=== PATIENT | female | born 1990 | race Two or more races ===

== ENCOUNTER 2018-10-20 12:30 | Emergency (ER) | payer OTHER ==
[2018-10-20 13:25] LABS: BILIRUBIN,URINE NEGATIVE (NEGATIVE); CLARITY,URINE HAZY (CLEAR); GLUCOSE, URINE (UA) NEGATIVE (NEGATIVE); KETONES,URINE (UA) NEGATIVE (NEGATIVE); LEUKOCYTE ESTERASE, URINE TRACE (NEGATIVE); NITRITE,URINE NEGATIVE (NEGATIVE); OCCULT BLOOD,URINE NEGATIVE (NEGATIVE); PH,URINE 6.5 PH (5.0-7.5); PROTEIN,URINE NEGATIVE (NEGATIVE); UROBILINOGEN,URINE 0.2 (NORMAL) E.U./dL (NORMAL)
[2018-10-20 13:26] LABS: HCG UR QUAL NEGATIVE
[2018-10-20 13:36] LABS: BACTERIA,URINE Many /HPF (None Seen); RBC,URINE 0-5 /HPF (0-5); SQUAMOUS EPITHELIAL CELL,UR MANY Squamous (<= Few)
[2018-10-20 13:37] LABS: MUCUS,URINE Few Strands; YEAST,URINE PRESENT
[2018-10-20] MEDS ORDERED: FLUCONAZOLE 100 MG TABLET PO STA (13:47)
--- NOTE | 2018-10-20 13:50 | ED Physician Documentation ---
History of Present Illness - Stated complaint Stated Complaint: LOWER ABD PX/FEMALE - Chief complaint Chief Complaint: Abd Pain - History obtained from History obtained from: Patient - History of Present Illness Timing: How many days ago (several) Pain level max: 3 Pain level now: 3 - Additonal information Additional information: 28-year-old female presents to the emergency department stating that she has dysuria, urinary frequency and burning with urination along with vaginal discharge. Feels similar to past UTI and yeast infections that she has had. No changes in sexual partners. No STD exposure. Worse with urination, nothing makes it better. No fevers. No vomiting. No back pain. Review of Systems Constitutional: denies: Fever, Chills Ears: denies: Ear pain Nose: denies: Rhinorrhea / runny nose, Congestion Cardiac: denies: Chest pain / pressure Respiratory: denies: Cough GI: denies: Nausea, Vomiting, Diarrhea : denies: Now EGA Skin: denies: Rash PD PAST MEDICAL HISTORY - Past Medical History Cardiovascular: None Respiratory: None Endocrine/Autoimmune: None Psych: Anxiety - Past Surgical History Past Surgical History: No - Present Medications Home Medications: Ambulatory Orders Medication Instructions Recorded Confirmed Mv-Mn/Iron/FA/Herbal/Digestive 03/07/14 03/07/14 [ One Tablet] Venlafaxine ER [Effexor ER] 03/07/14 03/07/14 Albuterol Sulfate [Proair Hfa 8.5 gm IH QID #1 hfa.aer.ad 06/22/16 Inhaler] Amoxicillin 500 mg PO TID #20 capsule 06/22/16 Dexamethasone [Decadron] 4 mg PO DAILY #5 tablet 06/22/16 Ondansetron HCl [Zofran] 4 mg PO Q6H PRN #20 tablet 06/22/16 guaiFENesin/CODEINE [Robitussin AC] 10 ml PO Q6H PRN #240 ml 06/22/16 Nitrofurantoin Monohyd/M-Cryst 100 mg PO BID #10 capsule 10/20/18 [Macrobid 100 mg Capsule] - Allergies Allergies/Adverse Reactions: Allergies Allergy/AdvReac Type Severity Reaction Status Date / Time No Known Drug Allergies Allergy Verified 10/20/18 12:40 - Social History Does the pt smoke?: No Smoking Status: Never smoker Does the pt drink ETOH?: No Does the pt have substance abuse?: No - POLST Patient has POLST: No PD ED PE NORMAL - Vitals Vital signs reviewed: Yes - General General: Alert and oriented X 3, No acute distress, Well developed/nourished - HEENT HEENT: PERRL - Neck Neck: Supple, no meningeal sign - Cardiac Cardiac: RRR, Strong equal pulses - Respiratory Respiratory: No respiratory distress, Clear bilaterally - Abdomen Abdomen: Soft, Non tender, Non distended - Female Female : Pt declined - Back Back: No CVA TTP, No spinal TTP - Derm Derm: Warm and dry - Neuro Neuro: Alert and oriented X 3 - Psych Psych: Normal mood, Normal affect Results - Vitals Vitals: Vital Signs - 24 hr 10/20/18 12:37 Temperature 36.6 C Heart Rate 67 Respiratory 16 Rate Blood Pressure 105/70 O2 Saturation 98 Oxygen O2 Source Room air - Labs Labs: Laboratory Tests 10/20/18 13:10 Urine Color YELLOW Urine Clarity HAZY Urine pH 6.5 Ur Specific Clark 1.020 Urine Protein NEGATIVE Urine Glucose (UA) NEGATIVE Urine Ketones NEGATIVE Urine Occult Blood NEGATIVE Urine Nitrite NEGATIVE Urine Bilirubin NEGATIVE Urine Urobilinogen 0.2 (NORMAL) Ur Leukocyte Esterase TRACE H Urine RBC 0-5 Urine WBC 6-10 H Ur Squamous Epith Cells MANY Squamous H Urine Bacteria Many H Urine Mucus Few Strands Urine Yeast PRESENT Ur Microscopic Review INDICATED Urine Culture Comments NOT INDICATED Urine HCG, Qual NEGATIVE PD MEDICAL DECISION MAKING - ED course Complexity details: reviewed results, re-evaluated patient, considered differential, d/w patient ED course: Patient with a UTI and yeast infection. Given Diflucan here. Will place on Macrobid for home. I will follow-up with her doctor for further care. Patient counseled regarding signs and symptoms for which I believe and urgent re- evaluation would be necessary. Patient with good understanding of and agreement to plan and is comfortable going home at this time This document was made in part using voice recognition software. While efforts are made to proofread this document, sound alike and grammatical errors may occur. Departure - Departure Disposition: Home, Self Care Clinical Impression: Vaginal yeast infection UTI (urinary tract infection) Qualifiers: Urinary tract infection type: acute cystitis Hematuria presence: without hematuria Qualified Code(s): N30.00 - Acute cystitis without hematuria Condition: Good Instructions: ED UTI Cystitis Female, ED Vaginal Infec Fungal Martina Follow-Up: your,doctor in 1week if not better [Other] Prescriptions: Nitrofurantoin Monohyd/M-Cryst [Macrobid 100 mg Capsule] 100 mg PO BID #10 capsule Comments: Return if you worsen. Take all antibiotics until gone.
[2018-10-20 14:01] VITALS: BP 114/72
== END 2018-10-20 14:01 | disposition home or self-care (01) ==
LOC: ED 12:30
DX: N30.00 Acute cystitis without hematuria (principal)
CPT/HCPCS: 81001; 81025; 99283; A9270; 81003; 87086